=== PATIENT | female | born 1955 | race Caucasian/White ===

== ENCOUNTER 2020-11-07 09:30 | Outpatient (REF) | payer MEDICARE, SELFPAY ==
[2020-11-07 11:21] LABS: MANUAL DIFF FLAG NO
[2020-11-07 11:30] LABS: Basophils Percent Auto 0.3 % (0-2); Eosinophils Absolute Auto 0.1 X10*3/uL (0.0-0.4); Eosinophils Percent Auto 1.1 % (0-4); Hematocrit 44.2 % (37-47); Hemoglobin 14.2 g/dl (12.0-16.0); Imm Gran Abs Auto 0.02 X10*3/uL (0.00-0.03); Imm Gran Pct Auto 0.3 % (0.0-0.4); Lymphocytes Absolute Auto 1.9 X10*3/uL (1.2-4.9); Lymphocytes Percent Auto 30.9 % (20-40); Mean Corpuscular HGB Conc 32.1 g/dl (31.0-35.0); Mean Corpuscular Hemoglobin 30.3 pg (27.0-33.0); Mean Corpuscular Volume 94.4 fL (80-98); Mean Platelet Volume 12.2 fL (9.4-12.3); Monocytes Absolute Auto 0.5 X10*3/uL (0.1-1.2); Neutrophils Absolute Auto 3.7 X10*3/uL (2.0-8.3); Neutrophils Percent Auto 59.4 % (45-73); Platelet Count 168 X10*3/uL (160-400); Red Blood Count 4.68 X10*6/uL (4.20-5.50); Red Cell Distribution Width 13.7 % (11.0-16.0); White Blood Count 6.3 X10*3/uL (4.8-10.8)
[2020-11-07 11:58] LABS: Alanine Aminotransferase 9 U/L (0-31); Albumin Level 4.1 g/dL (3.5-5.0); Alkaline Phosphatase 79 U/L (39-117); Anion Gap 14 (12-20); Aspartate Amino Transferase 14 U/L (5-31); Bilirubin Total 0.5 mg/dL (0.0-1.0); Blood Urea Nitrogen 16 mg/dL (9-16); Calcium 9.3 mg/dL (8.4-10.2); Carbon Dioxide 26 mmol/L (22-29); Chloride 105 mmol/L (96-108); Cholesterol 177 mg/dL; Estimated Glomerular Filt Rate > 60; Glucose Random 75 mg/dL (60-115); HDL Cholesterol 44 mg/dL; LDL Cholesterol Calculated 105 mg/dl; Potassium 4.6 mmol/L (3.3-5.1); Sodium 140 mmol/L (135-145); Triglycerides 144 mg/dL
== END 2020-11-07 09:31 | disposition home or self-care (01) ==
LOC: HO.MANLDS 09:30
PROVIDERS: PCP Internal Medicine; Visit Provider Physician Assistant
DX: Z00.00 Encounter for general adult medical examination without abnormal findings (principal)
CPT/HCPCS: 36415; 80053; 80061; 85025

== ENCOUNTER 2023-01-21 14:14 | Outpatient (REF) | payer MEDICARE, SELFPAY | END 2023-01-21 14:15 | disposition home or self-care (01) | LOC: HO.LNP 14:14 | PROVIDERS: Visit Provider Physician Assistant | DX: R07.0 Pain in throat (principal) | CPT/HCPCS: 87070 ==

== ENCOUNTER 2023-01-28 10:15 | Outpatient (REF) | payer MEDICARE, SELFPAY ==
--- NOTE | ~2023-01-28 | XR_ITS ---
EXAMINATION: XR CHEST CLINICAL INFORMATION: Acute bronchitis. COMPARISON: May 05, 2014. TECHNIQUE: 2 views of the chest were obtained. FINDINGS: No significant abnormality is noted involving the heart, lungs, mediastinum, or soft tissues. Mild degenerative changes of the spine. XR/XR chest 2V IMPRESSION: Unremarkable examination.
== END 2023-01-28 10:16 | disposition home or self-care (01) ==
LOC: HO.XRAY 10:15
PROVIDERS: PCP Internal Medicine; Visit Provider Physician Assistant
DX: J20.8 Acute bronchitis due to other specified organisms (principal)
CPT/HCPCS: 71046

== ENCOUNTER 2023-01-29 11:39 | Outpatient (REF) | payer MEDICARE, SELFPAY ==
[2023-01-29 12:13] LABS: MANUAL DIFF FLAG NO
[2023-01-29 12:22] LABS: Basophils Percent Auto 0.4 % (0-2); Eosinophils Absolute Auto 0.1 X10*3/uL (0.0-0.4); Eosinophils Percent Auto 0.9 % (0-4); Hematocrit 46.6 % (37.0-47.0); Hemoglobin 15.5 g/dl (12.0-16.0); Imm Gran Abs Auto 0.03 X10*3/uL (0.00-0.03); Imm Gran Pct Auto 0.4 % (0.0-0.4); Lymphocytes Absolute Auto 2.4 X10*3/uL (1.2-4.9); Lymphocytes Percent Auto 29.9 % (20-40); Mean Corpuscular HGB Conc 33.3 g/dl (31.0-35.0); Mean Corpuscular Hemoglobin 30.8 pg (27.0-33.0); Mean Corpuscular Volume 92.6 fL (80.0-98.0); Mean Platelet Volume 11.4 fL (9.4-12.3); Monocytes Absolute Auto 0.6 X10*3/uL (0.1-1.2); Monocytes Percent Auto 7.3 % (2-11); Neutrophils Absolute Auto 4.9 x10*3/uL (2.0-8.3); Neutrophils Percent Auto 61.1 % (45-73); Platelet Count 188 X10*3/uL (160-400); Red Blood Count 5.03 X10*6/uL (4.20-5.50); Red Cell Distribution Width 13.9 % (11.0-16.0); White Blood Count 8.1 X10*3/uL (4.8-10.8)
[2023-01-29 13:03] LABS: Erythrocyte Sedimentation Rate 20 MM/HR (0-20)
[2023-01-29 13:28] LABS: B Type Natriuretic Peptide 68 pg/mL (<100)
[2023-01-29 14:22] LABS: D Dimer High Sensitivity 273 NG/ML
== END 2023-01-29 11:40 | disposition home or self-care (01) ==
LOC: HO.LAB 11:39
PROVIDERS: Visit Provider Physician Assistant
DX: J04.0 Acute laryngitis (principal); R07.89 Other chest pain
CPT/HCPCS: 36415; 80053; 83880; 85025; 85379; 85652; 86140

== ENCOUNTER 2023-01-31 16:10 | Outpatient (REF) | payer MEDICARE, SELFPAY ==
--- NOTE | ~2023-01-31 | CT_ITS ---
Aborted CT pulmonary angiogram. CT pulmonary angiogram was ordered. The scan was aborted after the topogram images were obtained as the patient was unable to finish the examination. No contrast was administered. 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 On the single axial image obtained for localization purposes there is a 4 mm subpleural nodule in the left lower lobe. A repeat examination has been scheduled for 02/05/2023.
[2023-02-03 10:27] LABS: Creatinine POC 0.7 mg/dL (0.5-1.4); GFR POC > 60
== END 2023-01-31 16:11 | disposition home or self-care (01) ==
LOC: HO.CT 16:10
PROVIDERS: PCP Internal Medicine; Visit Provider Physician Assistant
DX: R06.00 Dyspnea, unspecified (principal)
CPT/HCPCS: 71275; 82565

== ENCOUNTER 2023-02-05 13:45 | Outpatient (REF) | payer MEDICARE, SELFPAY ==
--- NOTE | ~2023-02-05 | CT_ITS ---
EXAMINATION: CT ANGIOGRAM OF THE CHEST WITH AND WITHOUT CONTRAST (CT PULMONARY ANGIOGRAM FOR PE) CLINICAL INFORMATION: Reason for Exam [id number], R/O PULMONARY EMBOLISM COMPARISON: Chest x-ray 01/28/2023. TECHNIQUE: Prior to contrast administration, noncontrast localization images were obtained. Subsequently, multidetector volumetric imaging was performed from the thoracic inlet to below the diaphragms following the administration of 65 mL Omnipaque 350 intravenous contrast. No contrast reaction reported Sagittal, coronal, and MIP oblique sagittal reformatted images were obtained on the CT workstation, uploaded to PACS, and reviewed. This CT examination was performed using dose optimization techniques as appropriate, variously including the following: *Automated exposure control *Adjustment of mA and/or kV according to patient size (this includes techniques or standardized protocols for targeted exams where dose is matched to indication/reason for exam; i.e. extremities or head) *Use of iterative reconstruction technique Total exam dose-length product 134 mGy-cm FINDINGS: QUALITY OF STUDY/CONTRAST BOLUS: Suboptimal. PULMONARY ARTERIES: No central, lobar, or subsegmental pulmonary embolus. The subsegmental arteries are not well evaluated due to bolus quality and respiratory motion artifact. THORACIC AORTA: No aneurysm. LUNG: Emphysema. Airway wall thickening. 4 mm subpleural nodule left lower lobe series 7 image 251 without high risk features. No follow-up imaging is recommended as per Fleischner Society guidelines. Stable 3 mm subpleural nodule left lower lobe series 7 image 209. Stable 5 mm perifissural nodule right lower lobe series 7 image 278. PLEURA: No pleural effusion or pneumothorax. MEDIASTINUM: Normal heart size. No pericardial effusion. No hilar or mediastinal lymphadenopathy. No evidence of septal bowing or right heart strain. CORONARY ARTERY CALCIFICATION: None visualized on this study. CHEST WALL/AXILLA: No adenopathy. Surgical clips versus biopsy marker in the axilla. OSSEOUS STRUCTURES: Degenerative changes in the spine. UPPER ABDOMEN: Unremarkable. No reflux of contrast into the hepatic veins to suggest elevated right heart pressures. CT/CT angio chest PE protocol IMPRESSION: Mildly limited examination. The subsegmental arteries are not well evaluated. Otherwise negative for pulmonary embolism. New 4 mm subpleural nodule left lower lobe is nonspecific. This has low risk features. No routine follow-up imaging is recommended per Fleischner Society guidelines. Emphysema and chronic airways disease. VTE: negative
[2023-02-05] MEDS: iohexoL 350 MG/ML 75 ML INFUS..BTL 65 ML IV (14:22)
[2023-02-07 07:57] LABS: Creatinine POC 0.7 mg/dL (0.5-1.4); GFR POC > 60
== END 2023-02-05 13:46 | disposition home or self-care (01) ==
LOC: HO.CT 13:45
PROVIDERS: PCP Physician Assistant; Visit Provider Physician Assistant
DX: R06.00 Dyspnea, unspecified (principal)
CPT/HCPCS: 71275; 82565; Q9967

== ENCOUNTER 2023-02-07 13:30 | Outpatient (REF) | payer MEDICARE, SELFPAY | END 2023-02-07 13:31 | disposition home or self-care (01) | LOC: HO.LNP 13:30 | PROVIDERS: Visit Provider Physician Assistant | DX: J04.0 Acute laryngitis (principal) | CPT/HCPCS: 87070 ==

== ENCOUNTER 2023-09-17 14:39 | Outpatient (REF) | payer MEDICARE, SELFPAY ==
--- NOTE | ~2023-09-17 | XR_ITS ---
EXAMINATION: XR KNEE, LEFT CLINICAL INFORMATION: Pain left knee joint COMPARISON: None available. TECHNIQUE: Three views of the left knee. FINDINGS: The bones are diffusely demineralized. Prominent tricompartmental osteophytes. Moderate to large joint effusion. Narrowing of the medial and lateral compartments. XR/XR knee LT 3V IMPRESSION: Moderate degenerative changes. Moderate to large joint effusion.
== END 2023-09-17 14:40 | disposition home or self-care (01) ==
LOC: HO.XRAY 14:39
PROVIDERS: PCP Internal Medicine; Visit Provider Internal Medicine
DX: M25.562 Pain in left knee (principal)
CPT/HCPCS: 73562

== ENCOUNTER 2023-09-19 12:34 | Outpatient (REF) | payer MEDICARE, SELFPAY ==
--- NOTE | ~2023-09-19 | US_ITS ---
EXAMINATION: US EXTREMITY, NONVASCULAR CLINICAL INFORMATION: Left popliteal fossa cyst. COMPARISON: No similar priors. TECHNIQUE: Targeted grayscale and Doppler ultrasound images of the left popliteal fossa. FINDINGS: There is a 6.1 x 1.6 x 1 cm complex heterogeneous avascular collection in the left popliteal fossa. The popliteal vein is patent. US/US extremity nonvascular IMPRESSION: Complex avascular collection in the left popliteal fossa that could represent a Cardona's cyst with superimposed infection/inflammation, abscess or hematoma correlate clinically clinically. A short-term follow-up examination is advised as other underlying soft tissues tumors cannot be entirely excluded.
== END 2023-09-19 12:35 | disposition home or self-care (01) ==
LOC: HO.HMGCX 12:34
PROVIDERS: PCP Internal Medicine; Visit Provider Internal Medicine
DX: M66.0 Rupture of popliteal cyst (principal)
CPT/HCPCS: 76882

== ENCOUNTER 2023-12-10 13:46 | Outpatient (REF) | payer MEDICARE, SELFPAY ==
[2023-12-10 16:34] LABS: Uric Acid 4.6 mg/dL (2.4-5.7)
== END 2023-12-10 13:47 | disposition home or self-care (01) ==
LOC: HO.MANLDS 13:46
PROVIDERS: Visit Provider Physician Assistant
DX: M25.572 Pain in left ankle and joints of left foot (principal)
CPT/HCPCS: 36415; 84550

== ENCOUNTER 2025-01-11 08:00 | Outpatient (REF) | payer MEDICARE, SELFPAY ==
--- NOTE | ~2025-01-11 | XR_ITS ---
EXAMINATION: XR CHEST CLINICAL INFORMATION: ACUTE BRONCHITIS,ACUTE BRONCHITIS COMPARISON: 01/28/2023. TECHNIQUE: 2 views of the chest were obtained. FINDINGS: The cardiac, hilar, and mediastinal contours are normal. Aortic mural calcification. The lungs are diffusely hyperaerated, however clear bilaterally. There is no pneumothorax or pleural effusion. There is no focal osseous or soft tissue abnormality. Degenerative changes throughout the spine. Surgical clips left axilla. XR/XR chest 2V IMPRESSION: Findings suggestive of COPD. No active superimposed pulmonary disease. Electronically signed by: Francisco Javier Washburn MD 01/11/2025 08:22 AM EDT
== END 2025-01-11 08:01 | disposition home or self-care (01) ==
LOC: HO.XRAY 08:00
PROVIDERS: PCP Internal Medicine; Visit Provider Physician Assistant
DX: J20.9 Acute bronchitis, unspecified (principal)
CPT/HCPCS: 71046

== ENCOUNTER → 2025-01-11 08:04 | Outpatient (BNV) | payer MEDICARE, SELFPAY | PROVIDERS: PCP Internal Medicine; Visit Provider Radiology Diagnostic Radiology | DX: J44.9 Chronic obstructive pulmonary disease, unspecified (principal) | CPT/HCPCS: 71046 ==